=== PATIENT | female | born 1955 | race Caucasian/White ===

== ENCOUNTER → 2018-01-08 | Outpatient (CLI) | payer OTHER ==
[~2018-01-08] MED LIST: IOPAMIDOL (ISOVUE-300) 100 ML BTL ONE
== END ==
LOC: CIMAGING 11:25
PROVIDERS: ATTEND Family Medicine
DX: N99.89 Other postprocedural complications and disorders of genitourinary system (principal); R10.2 Pelvic and perineal pain; R19.09 Other intra-abdominal and pelvic swelling, mass and lump; E65 Localized adiposity
CPT/HCPCS: 74177; Q9967